=== PATIENT | female | born 1960 | race Two or more races ===

== ENCOUNTER 2023-07-28 07:46 | Inpatient (IN) | payer OTHER ==
[~2023-07-28] VITALS: Ht 167.6 cm; Wt 97.0 kg
[~2023-07-28 07:46] MED LIST: ALBUAER3 IN; ATE50T PO; BISA5TAB PO; GLIP10TA9 PO; HYDR1TAB97 PO; INSU100I61 SC; NIFE1TAB30 PO; PREG75CA PO; QUET50TA PO; SENN25TA PO; SUCR1TAB22 OR; TIOTCAP IN
[2023-07-28] MEDS ORDERED: fentaNYL CITRATE 100 MCG/2 ML VL ONE (09:30)
[2023-07-28] MEDS ORDERED: HYDROmorphone HCL 2 MG/ML VL/or syr ONE (09:30)
[2023-07-28] MEDS ORDERED: MIDAZOLAM HCL 2MG/2ML 2ml VIAL (1mg/ml) ONE (09:30)
[2023-07-28] MEDS ORDERED: LIDOCAINE 2% (LOCAL ANESTH.) PF 5ml SDV ONE ×2 (09:33→12:07)
[2023-07-28] MEDS ORDERED: DexAMETHasone SOD PHOS 10MG/1ML VIAL INJ ONE (09:33)
[2023-07-28] MEDS ORDERED: ONDANSETRON HCL 4 MG/2 ML VIAL ONE (09:33)
[2023-07-28] MEDS ORDERED: GLYCOPYRROLATE 0.2 MG/ML 1ML VIAL ONE (09:33)
[2023-07-28] MEDS ORDERED: GABAPENTIN 300 MG CAP PO ONE (10:15)
[2023-07-28] MEDS ORDERED: oxyCODONE ER 20 MG TAB PO ONE (10:15)
[2023-07-28] MEDS ORDERED: TRANEXAMIC ACID 30 ML ONE (11:14)
[2023-07-28] MEDS ORDERED: LIDOCAINE 4MG/ML IV SOLN 500 ML IV ONE (11:14)
[2023-07-28] MEDS ORDERED: LIDOCAINE 2% JELLY 11ml (GLYDO) ONE (11:30)
[2023-07-28] MEDS ORDERED: MAGNESIUM SULFATE 1GM/100ML 200 ML IV ONE (11:32)
[2023-07-28] MEDS ORDERED: TRANEXAMIC ACID 20 ML ONE (11:52)
[2023-07-28] MEDS ORDERED: PROPOFOL 100 ML IV ONE (12:03)
[2023-07-28] MEDS ORDERED: ceFAZolin 1GM VL ONE (12:46)
[2023-07-28] MEDS ORDERED: SODIUM CHLORIDE LOCK 10 ML ONE (12:46)
[2023-07-28] MEDS ORDERED: PROPOFOL 10 MG/ML 20 ML IV ONE (13:44)
[2023-07-28] MEDS ORDERED: ePHEDrine SULFATE 50 MG/ML AMP ONE (14:54)
[2023-07-28] MEDS ORDERED: ONDANSETRON HCL 4 MG/2 ML VIAL IV PRN ×2 (15:30→15:45)
[2023-07-28] MEDS ORDERED: NITROGLYCERIN 0.4 MG SL TAB SL PRN (15:30)
[2023-07-28] MEDS ORDERED: MORPHINE SULFATE INJ 2 MG/ml SYRG IV PRN (15:30)
[2023-07-28] MEDS: ceFAZolin 1GM/50ML 50 ML IV SCH ×3 (15:30→22:02)
[2023-07-28] MEDS ORDERED: ALBUTEROL SULF HFA 90MCG INH 200DOSE IN SCH (15:30)
[2023-07-28 15:32] VITALS: O2SAT 94
[2023-07-28] MEDS ORDERED: MEPERIDINE HCL (25 MG/ML) 1ML VIAL IV PRN (15:45)
[2023-07-28] MEDS: HYDROmorphone HCL 2 MG/ML VL/or syr IV PRN ×3 (16:03→16:29)
[2023-07-28] MEDS: CYCLOBENZAPRINE HCL 10 MG TAB PO ONE ×2 (16:18→16:30)
[2023-07-28 17:10] VITALS: BP 146/79; PULSE 80; RESP 16; TEMP 97.2; O2SAT 97
[2023-07-28 17:45] VITALS: BP 144/72; PULSE 75; RESP 18; O2SAT 97
[2023-07-28] MEDS: D5W/SOD CHLO 0.9% 1,000 ML IV SCH (17:48)
[2023-07-28 19:15] VITALS: BP 144/72; PULSE 75; RESP 18; TEMP 97.2; O2SAT 97
[2023-07-28 20:00] VITALS: BP 155/81; PULSE 101; PULSE 92; RESP 20; TEMP 98; O2SAT 100
[2023-07-28] MEDS: ONDANSETRON HCL 4 MG/2 ML VIAL IV PRN (20:20)
[2023-07-28] MEDS: MORPHINE SULFATE INJ 2 MG/ml SYRG IV PRN (20:24)
[2023-07-28] MEDS ORDERED: DEXTROSE (50%) 50ML SYRG IV PRN (21:00)
[2023-07-28 22:00] VITALS: BP 145/80; PULSE 85; RESP 20; TEMP 98; O2SAT 100
[2023-07-28] MEDS ORDERED: InsuLIN REG 1unit/0.01ml Soln (100units/ml) SC SCH (22:00)
[2023-07-28] MEDS ORDERED: ACCU-CHEK COMFORT CURVE STRIP VI SCH (22:00)
[2023-07-28] MEDS: DOCUSATE SOD 100 MG CAP PO SCH (22:01)
[2023-07-28] MEDS: BISACODYL 5 MG EC TAB PO SCH (22:01)
[2023-07-28] MEDS: CYCLOBENZAPRINE HCL 10 MG TAB PO SCH (22:01)
[2023-07-28] MEDS: PREGABALIN CAPSULE 75 MG CAP PO SCH (22:01)
[2023-07-28] MEDS ORDERED: InsuLIN REG 1unit/0.01ml Soln (100units/ml) IV ONE ×2 (22:30→23:45)
[2023-07-28] MEDS: HYDROcodone-ACET 10/325MG TAB PO PRN (22:49)
[2023-07-29] VITALS (8 sets, daily range): BP systolic 155–159; BP diastolic 77–90; PULSE 69–75; RESP 17–22; TEMP 97.6–98.7; O2SAT 90–100
[2023-07-29] MEDS ORDERED: DEXTROSE (50%) 50ML SYRG IV PRN (00:15)
[2023-07-29] MEDS: D5W/SOD CHLO 0.9% 1,000 ML IV SCH (01:30)
[2023-07-29] MEDS: ACETAMINOPHEN 325 MG TAB PO PRN ×2 (02:29→08:32)
[2023-07-29] MEDS: ACCU-CHEK COMFORT CURVE STRIP VI SCH ×5 (04:26→20:48)
[2023-07-29] MEDS: InsuLIN REG 1unit/0.01ml Soln (100units/ml) SC SCH ×6 (04:34→23:52)
[2023-07-29] MEDS: CYCLOBENZAPRINE HCL 10 MG TAB PO SCH ×3 (05:16→20:47)
[2023-07-29] MEDS ORDERED: InsuLIN REG 1unit/0.01ml Soln (100units/ml) SC SCH (07:00)
[2023-07-29] MEDS: DOCUSATE SOD 100 MG CAP PO SCH ×2 (10:22→20:47)
[2023-07-29] MEDS: BISACODYL 5 MG EC TAB PO SCH ×2 (10:22→20:47)
[2023-07-29] MEDS: ATENOLOL 50 MG TAB PO SCH (10:23)
[2023-07-29] MEDS: PREGABALIN CAPSULE 75 MG CAP PO SCH ×2 (10:23→20:48)
[2023-07-29] MEDS ORDERED: NIFEdipine ER 30 MG TAB PO ONE (11:45)
[2023-07-29] MEDS: ALBUTEROL SULF 2.5 MG/0.5ML(0.5%) NEB SOLN NEB SCH ×2 (14:00→22:00)
[2023-07-29] MEDS ORDERED: ALBUTEROL SULF HFA 90MCG INH 200DOSE IN SCH (14:00)
[2023-07-29] MEDS: QUEtiapine FUMARATE 25 MG TAB PO SCH (20:47)
[2023-07-29] MEDS: HYDROcodone-ACET 10/325MG TAB PO PRN (23:57)
[2023-07-30] VITALS (12 sets, daily range): BP systolic 117–153; BP diastolic 69–85; PULSE 64–102; RESP 14–19; TEMP 98–99.2; O2SAT 90–97
[2023-07-30] MEDS: ACCU-CHEK COMFORT CURVE STRIP VI SCH ×6 (00:06→20:00)
[2023-07-30] MEDS: InsuLIN REG 1unit/0.01ml Soln (100units/ml) SC SCH ×7 (04:00→20:36)
[2023-07-30] MEDS: CYCLOBENZAPRINE HCL 10 MG TAB PO SCH ×3 (05:29→21:25)
[2023-07-30] MEDS: HYDROcodone-ACET 10/325MG TAB PO PRN ×2 (05:29→13:57)
[2023-07-30 06:09] LABS: Basophils # (auto) 0.1 10 ^3/uL (0-0.2); Basophils % (auto) 0.4 % (0.0-2.0); Eosinophils # (auto) 0 10 ^3/uL (0-0.8); Eosinophils % (auto) 0.3 % (0.0-7.0); Hematocrit 39.9 % (36.0-46.0); Hemoglobin 13.9 g/dL (12.2-16.2); Lymphocytes # (auto) 3.7 10 ^3/uL (0.4-5.4); Lymphocytes % (auto) 27.5 % (10.0-50.0); Mean Corpuscular Hemoglobin 33.5 pg (28.0-32.0); Mean Corpuscular Hgb Conc. 34.8 g/dL (32.0-36.0); Mean Corpuscular Volume 96.3 fL (80.0-100.0); Monocytes # (auto) 1.2 10 ^3/uL (0-1.3); Monocytes % (auto) 9.2 % (0.0-12.0); Neutrophils # (auto) 8.3 10 ^3/uL (1.6-8.6); Neutrophils % (auto) 62.6 % (37.0-80.0); Nucleated Red Blood Cells % 0.1 %; Red Blood Cells 4.14 10^6/uL (4.0-5.20); Red Cell Distribution Width 13.6 % (11.8-14.3); White Blood Cell 13.3 10^3/uL (4.4-10.8)
[2023-07-30 06:12] LABS: Chloride 109 mmol/L (98-107); Potassium 3.2 mmol/L (3.5-5.1); Sodium 141 mmol/L (136-145)
[2023-07-30 06:13] LABS: Anion Gap 8 (5-15); Carbon Dioxide 24 mmol/L (20-30)
[2023-07-30 06:14] LABS: Calcium 8.2 mg/dL (8.5-10.1)
[2023-07-30 06:18] LABS: Glucose 97 mg/dL (74-106)
[2023-07-30 06:20] LABS: BUN/Creatinine Ratio 12.6 (10.0-20.0); Blood Urea Nitrogen 18 mg/dL (9-23)
[2023-07-30] MEDS: glipiZIDE 5 MG TAB PO SCH (06:32)
[2023-07-30] MEDS: ALBUTEROL SULF 2.5 MG/0.5ML(0.5%) NEB SOLN NEB SCH ×3 (07:07→22:20)
[2023-07-30] MEDS: PREGABALIN CAPSULE 75 MG CAP PO SCH ×3 (08:59→21:24)
[2023-07-30] MEDS: DOCUSATE SOD 100 MG CAP PO SCH ×3 (09:00→21:26)
[2023-07-30] MEDS: BISACODYL 5 MG EC TAB PO SCH ×3 (09:00→21:25)
[2023-07-30] MEDS: NIFEdipine ER 30 MG TAB PO SCH ×2 (09:00→10:20)
[2023-07-30] MEDS: ATENOLOL 50 MG TAB PO SCH ×2 (09:01→10:21)
[2023-07-30] MEDS: QUEtiapine FUMARATE 25 MG TAB PO SCH (21:26)
[2023-07-31] VITALS (12 sets, daily range): BP systolic 134–157; BP diastolic 69–76; PULSE 55–105; RESP 16–18; TEMP 97.7–98.4; O2SAT 90–100
[2023-07-31] MEDS: ACCU-CHEK COMFORT CURVE STRIP VI SCH ×6 (00:15→20:00)
[2023-07-31] MEDS: ONDANSETRON HCL 4 MG/2 ML VIAL IV PRN (01:35)
[2023-07-31] MEDS: MORPHINE SULFATE INJ 2 MG/ml SYRG IV PRN ×2 (01:55→08:25)
[2023-07-31] MEDS: InsuLIN REG 1unit/0.01ml Soln (100units/ml) SC SCH ×6 (04:00→20:00)
[2023-07-31] MEDS: ALBUTEROL SULF 2.5 MG/0.5ML(0.5%) NEB SOLN NEB SCH ×3 (06:59→22:00)
[2023-07-31] MEDS: glipiZIDE 5 MG TAB PO SCH (07:07)
[2023-07-31] MEDS: CYCLOBENZAPRINE HCL 10 MG TAB PO SCH ×3 (07:07→23:12)
[2023-07-31] MEDS: HYDROcodone-ACET 10/325MG TAB PO PRN ×2 (07:08→23:18)
[2023-07-31] MEDS ORDERED: LACTULOSE 20Gm/30ML SOLN PO ONE (09:00)
[2023-07-31] MEDS: PREGABALIN CAPSULE 75 MG CAP PO SCH ×2 (09:37→23:13)
[2023-07-31] MEDS: DOCUSATE SOD 100 MG CAP PO SCH ×2 (09:37→23:12)
[2023-07-31] MEDS: BISACODYL 5 MG EC TAB PO SCH ×2 (09:37→23:11)
[2023-07-31] MEDS: ATENOLOL 50 MG TAB PO SCH (09:38)
[2023-07-31] MEDS: NIFEdipine ER 30 MG TAB PO SCH (09:39)
[2023-07-31] MEDS ORDERED: POTASSIUM CHL 20 Meq TABLET PO ONE (12:00)
[2023-07-31] MEDS: LACTULOSE 20Gm/30ML SOLN PO SCH ×2 (13:42→23:12)
[2023-07-31] MEDS: QUEtiapine FUMARATE 25 MG TAB PO SCH (22:00)
[2023-08-01] VITALS (11 sets, daily range): BP systolic 128–171; BP diastolic 69–102; PULSE 85–92; RESP 16–19; TEMP 37.7; O2SAT 93–100
[2023-08-01] MEDS: InsuLIN REG 1unit/0.01ml Soln (100units/ml) SC SCH ×5 (04:00→16:00)
[2023-08-01] MEDS: ACCU-CHEK COMFORT CURVE STRIP VI SCH ×5 (04:00→16:00)
[2023-08-01] MEDS: CYCLOBENZAPRINE HCL 10 MG TAB PO SCH ×2 (06:42→14:08)
[2023-08-01] MEDS: LACTULOSE 20Gm/30ML SOLN PO SCH ×2 (06:42→14:08)
[2023-08-01] MEDS: HYDROcodone-ACET 10/325MG TAB PO PRN ×2 (06:42→12:39)
[2023-08-01] MEDS: glipiZIDE 5 MG TAB PO SCH (06:48)
[2023-08-01] MEDS: ALBUTEROL SULF 2.5 MG/0.5ML(0.5%) NEB SOLN NEB SCH ×2 (07:05→13:46)
[2023-08-01] MEDS: ATENOLOL 50 MG TAB PO SCH (09:42)
[2023-08-01] MEDS: BISACODYL 5 MG EC TAB PO SCH (09:45)
[2023-08-01] MEDS: PREGABALIN CAPSULE 75 MG CAP PO SCH (09:45)
[2023-08-01] MEDS: DOCUSATE SOD 100 MG CAP PO SCH (09:45)
[2023-08-01] MEDS: NIFEdipine ER 30 MG TAB PO SCH (09:46)
[2023-08-01] MEDS: ACETAMINOPHEN 325 MG TAB PO PRN (12:34)
[2023-08-01] MEDS ORDERED: MILK OF MAGNESIA 30ML SUSP PO ONE (15:15)
[2023-08-01] MEDS ORDERED: SENN25TA PO (15:48)
[2023-08-01] MEDS ORDERED: BISA5TAB PO (15:48)
[2023-08-01] MEDS ORDERED: MILK OF MAGNESIA 30ML SUSP ONE (16:01)
[2023-08-01] MEDS ORDERED: CYCLOBENZAPRINE HCL 10 MG TAB PO SCH (22:00)
== END 2023-08-01 18:21 | disposition home health service (06) | DRG 460 ==
LOC: SUR 07:46 → TELE 15:20 → TELE-EAST 16:53
PROVIDERS: ADMIT Orthopaedic Surgery; ATTEND Orthopaedic Surgery
PROC: 0SG0071 Fusion of Lumbar Vertebral Joint with Autologous Tissue Substitute, Posterior Approach, Posterior Column, Open Approach (ICD-10-PCS; principal; 2023-07-26)
PROC: 01NB0ZZ Release Lumbar Nerve, Open Approach (ICD-10-PCS; 2023-07-26)
PROC: 00NY0ZZ Release Lumbar Spinal Cord, Open Approach (ICD-10-PCS; 2023-07-26)
PROC: 4A11X4G Monitoring of Peripheral Nervous Electrical Activity, Intraoperative, External Approach (ICD-10-PCS; 2023-07-26)
DX: M48.062 Spinal stenosis, lumbar region with neurogenic claudication (principal); E11.65 Type 2 diabetes mellitus with hyperglycemia; M51.36 Other intervertebral disc degeneration, lumbar region; I11.9 Hypertensive heart disease without heart failure; E66.9 Obesity, unspecified; M47.816 Spondylosis without myelopathy or radiculopathy, lumbar region; K59.09 Other constipation; Z68.34 Body mass index [BMI] 34.0-34.9, adult; Z79.4 Long term (current) use of insulin
CPT/HCPCS: 36415; 36600; 72100; 76000; 80048; 82805; 82962; 85025; 86850; 86900; 86901; 94640; 97110; 97116; 97163; 97530; G0378; J0690; J1100; J1815; J2001; J2250; J2405; J2704; J7042

== ENCOUNTER 2023-08-03 09:23 | Emergency (ER) | payer OTHER, MEDICAID ==
[~2023-08-03] VITALS: Ht 167.6 cm; Wt 92.0 kg
[2023-08-03 10:53] VITALS: PULSE 82; RESP 20; O2SAT 93
[2023-08-03 10:53] LABS: Alanine Aminotransferase 24 U/L (7-40); Albumin 4.2 g/dL (3.2-4.8); Alkaline Phosphatase 74 U/L (46-116); Anion Gap 10 (5-15); Aspartate Aminotransferase 74 U/L (13-40); BUN/Creatinine Ratio 4.8 (10.0-20.0); Bilirubin, Total 0.8 mg/dL (0.2-1.0); Blood Urea Nitrogen 6 mg/dL (9-23); Calcium 8.8 mg/dL (8.5-10.1); Carbon Dioxide 21 mmol/L (20-30); Chloride 104 mmol/L (98-107); Glucose 63 mg/dL (74-106); Total Protein 7.5 g/dL (5.7-8.2)
[2023-08-03 10:54] LABS: Basophils # (auto) 0.1 10 ^3/uL (0-0.2); Basophils % (auto) 0.5 % (0.0-2.0); Eosinophils # (auto) 0.1 10 ^3/uL (0-0.8); Eosinophils % (auto) 0.4 % (0.0-7.0); Hemoglobin 15.5 g/dL (12.2-16.2); Lymphocytes # (auto) 3.1 10 ^3/uL (0.4-5.4); Lymphocytes % (auto) 21.6 % (10.0-50.0); Mean Corpuscular Hemoglobin 33.1 pg (28.0-32.0); Mean Corpuscular Hgb Conc. 33.6 g/dL (32.0-36.0); Mean Corpuscular Volume 98.6 fL (80.0-100.0); Monocytes # (auto) 1.9 10 ^3/uL (0-1.3); Monocytes % (auto) 13.5 % (0.0-12.0); Neutrophils # (auto) 9.2 10 ^3/uL (1.6-8.6); Red Blood Cells 4.67 10^6/uL (4.0-5.20); Red Cell Distribution Width 13.3 % (11.8-14.3); White Blood Cell 14.3 10^3/uL (4.4-10.8)
[2023-08-03 11:11] LABS: INR 1.04 (0.9-1.15); Partial Thromboplastin Time 24.9 SEC (24.5-34.5); Prothrombin Time 10.9 sec (9.3-11.8)
[2023-08-03 11:12] LABS: Sodium 135 mmol/L (136-145)
[2023-08-03 13:38] LABS: Urine Bacteria FEW /hpf (None Seen); Urine Blood 2+ /uL (Negative); Urine Clarity HAZY (Clear); Urine Color Yellow (Yellow); Urine Protein, UAD 2+ (Negative); Urine Specific Gravity 1.009 (1.001-1.035); Urine Urobilinogen Normal (Negative); Urine WBC 2 /hpf (0 - 5)
[2023-08-03] MEDS ORDERED: FLEET ENEMA(ADULT) 135 ML PR ONE (13:45)
[2023-08-03] MEDS ORDERED: CEPH250C PO (13:55)
[2023-08-03] MEDS ORDERED: HYDROcodone-ACET 5/325MG TAB PO ONE (14:45)
[2023-08-03] MEDS ORDERED: DexAMETHasone SOD PHOS 10MG/1ML VIAL INJ IV ONE (15:15)
[2023-08-03] MEDS ORDERED: DEXTROSE (50%) 50ML SYRG IV ONE (15:15)
[2023-08-03 16:00] VITALS: TEMP 97.9
[2023-08-03 16:39] VITALS: BP 153/92; PULSE 81; RESP 14; O2SAT 94
== END 2023-08-03 17:19 | disposition home or self-care (01) ==
LOC: ER 09:23
DX: N39.0 Urinary tract infection, site not specified (principal); I10 Essential (primary) hypertension; E11.9 Type 2 diabetes mellitus without complications; Z88.6 Allergy status to analgesic agent; Z79.899 Other long term (current) drug therapy; Z79.01 Long term (current) use of anticoagulants
CPT/HCPCS: 36415; 72131; 72192; 80053; 81001; 82962; 84484; 85025; 85610; 85730; 93970; 96374; 99284; J1100